=== PATIENT | male | born 1960 | race African-American/Black ===

== ENCOUNTER 2018-09-25 10:37 | Emergency (ER) | payer OTHER ==
[~2018-09-25] VITALS: Ht 175.3 cm; Wt 65.0 kg
[2018-09-25 11:52] LABS: BASOPHILS % 0.9 % (0.0-2.0); EOSINOPHILS % 4.5 % (0.0-5.0); HEMOGLOBIN. 14.8 g/dL (14.0-18.0); LYMPHOCYTES % 25.3 % (20.0-50.0); MEAN CORPUSCULAR HEMOGLOBIN 29.8 pg (28.0-32.0); MEAN CORPUSCULAR VOLUME 90.9 fL (80.0-94.0); MEAN PLATELET VOLUME 9.3 fl (7.4-10.4); MONOCYTES % 7.5 % (2.0-8.0); NEUTROPHILS % 61.8 % (40.0-76.0); PLATELET 246 x1000/uL (130-400); RED BLOOD CELL COUNT 4.95 mill/uL (4.7-6.1); RED CELL DISTRIBUTION WIDTH 15.1 % (11.6-14.6)
[2018-09-25 11:57] LABS: CHLORIDE 106 mEq/L (98-107)
[2018-09-25] MEDS ORDERED: IBUPROFEN 600MG TABLET PO ONE (13:00)
[2018-09-25 14:00] VITALS: BP 118/78
== END 2018-09-25 14:03 | disposition home or self-care (01) ==
LOC: ER 10:37
DX: R07.89 Other chest pain (principal); F17.290 Nicotine dependence, other tobacco product, uncomplicated; J44.9 Chronic obstructive pulmonary disease, unspecified
CPT/HCPCS: 36415; 71045; 84484; 93005; 99284

== ENCOUNTER 2023-08-07 07:35 | Inpatient (IN) | payer OTHER ==
[~2023-08-07] VITALS: Ht 182.9 cm; Wt 62.1 kg
[2023-08-07] VITALS (11 sets, daily range): BP systolic 111–137; BP diastolic 76–97; PULSE 79–99; RESP 16–31; TEMP 96.9–97.9; O2SAT 96–98
[~2023-08-07 07:35] MED LIST: ALBU6.7H15 INH; ALBU6.7H3 INH; FLUT1BLS IH; FLUT1DIS3 INH; IPRA3AMP9 NEB; MED4 MT
[2023-08-07] MEDS: IPRATROPIUM BROMIDE (0.02%) 0.5MG/2.5ML NEB HHN STA (07:48)
[2023-08-07] MEDS: ALBUTEROL (0.083%) 2.5MG/3ML NEB HHN SCH (07:49)
[2023-08-07 07:59] LABS: BASOPHILS % 0.9 % (0.0-2.0); EOSINOPHILS % 6.2 % (0.0-5.0); HEMATOCRIT. 40.4 % (42.0-52.0); HEMOGLOBIN. 13.4 g/dL (14.0-18.0); LYMPHOCYTES % 31.7 % (20.0-50.0); MEAN CORPUSCULAR HEMOGLOBIN 29.8 pg (28.0-32.0); MEAN CORPUSCULAR HGB CONC 33.1 g/dL (31.0-37.0); MEAN CORPUSCULAR VOLUME 89.9 fL (80.0-94.0); MEAN PLATELET VOLUME 8.1 fl (7.4-10.4); MONOCYTES % 8.9 % (2.0-8.0); NEUTROPHILS % 52.3 % (40.0-76.0); PLATELET 348 x1000/uL (130-400); RED BLOOD CELL COUNT 4.49 mill/uL (4.7-6.1); RED CELL DISTRIBUTION WIDTH 15.4 % (11.6-14.6); WHITE BLOOD COUNT 5.9 x1000/uL (4.5-11.0)
[2023-08-07] MEDS: EPINEPHRINE 1:1000 1 MG/ML AMP IM ONE (08:00)
[2023-08-07] MEDS: METHYLPREDNISOLONE SOD SUCC 125MG/2ML (ACT-O-VIAL) IV STA (08:00)
[2023-08-07] MEDS: MAGNESIUM 2 G PREMIX 50 ML IV ONE (08:01)
[2023-08-07 08:05] LABS: CHLORIDE 104 mEq/L (98-107); POTASSIUM 4.3 mEq/L (3.5-5.1); SODIUM 139 mEq/L (136-145)
[2023-08-07 08:06] LABS: CALCIUM 9.5 mg/dL (8.7-10.4); CARBON DIOXIDE 33 mEq/L (21-32)
[2023-08-07 08:11] LABS: CREATININE 0.7 mg/dL (0.6-1.3); GLUCOSE 92 mg/dL (70-105); UREA NITROGEN BLOOD 9 mg/dL (9-23)
[2023-08-07 08:13] LABS: ALANINE AMINOTRANSFERASE 23 IU/L (10-49); ALBUMIN 4.1 g/dL (3.2-4.8); ASPARTATE AMINOTRANSFERASE 27 IU/L (<34)
[2023-08-07 08:14] LABS: BILIRUBIN TOTAL 0.7 mg/dL (0.1-1.0); PROTEIN TOTAL 6.3 g/dL (6.0-8.3)
[2023-08-07 08:20] LABS: TROPONIN I HIGH SENSITIVITY 7 ng/L (3.0-53)
[2023-08-07] MEDS: CALCIUM GLUCONATE 1GM PREMIX 50 ML IV ONE (09:30)
[2023-08-07] MEDS: AZITHROMYCIN 500MG/250ML 250 ML IV SCH (10:17)
[2023-08-07] MEDS ORDERED: ONDANSETRON HCL 4MG/2ML INJ IV PRN (14:45)
[2023-08-07] MEDS ORDERED: ACETAMINOPHEN 325MG TABLET PO PRN (14:45)
[2023-08-07] MEDS ORDERED: CLONIDINE 0.1MG TABLET PO PRN (14:45)
[2023-08-07] MEDS ORDERED: DIPHENHYDRAMINE 50MG/ML VIAL IV PRN (14:45)
[2023-08-07] MEDS: IPRATROPIUM/ALBUTEROL 0.5-3(2.5)MG/3ML NEB HHN PRN (17:28)
[2023-08-07] MEDS: METHYLPREDNISOLONE SOD SUCC 40MG/ML (ACT-O-VIAL) IV SCH (17:38)
[2023-08-07] MEDS ORDERED: AZITHROMYCIN 500 MG TABLET PO SCH (19:30)
[2023-08-07] MEDS: BUDESONIDE 0.5MG/2ML NEB HHN SCH (22:19)
[2023-08-08] VITALS (19 sets, daily range): BP systolic 91–122; BP diastolic 61–79; PULSE 72–102; RESP 15–23; TEMP 97.2–98.5; O2SAT 96–100
[2023-08-08] MEDS: IPRATROPIUM/ALBUTEROL 0.5-3(2.5)MG/3ML NEB HHN SCH (00:03)
[2023-08-08 05:47] LABS: HEMOGLOBIN. 12.4 g/dL (14.0-18.0); MEAN CORPUSCULAR HEMOGLOBIN 29.4 pg (28.0-32.0); MEAN CORPUSCULAR HGB CONC 32.8 g/dL (31.0-37.0); MEAN CORPUSCULAR VOLUME 89.6 fL (80.0-94.0); MEAN PLATELET VOLUME 9.1 fl (7.4-10.4); PLATELET 352 x1000/uL (130-400); RED BLOOD CELL COUNT 4.23 mill/uL (4.7-6.1); RED CELL DISTRIBUTION WIDTH 15.7 % (11.6-14.6); WHITE BLOOD COUNT 11.2 x1000/uL (4.5-11.0)
[2023-08-08 06:19] LABS: CARBON DIOXIDE 30 mEq/L (21-32); CHLORIDE 103 mEq/L (98-107); POTASSIUM 4.6 mEq/L (3.5-5.1); SODIUM 137 mEq/L (136-145)
[2023-08-08 06:20] LABS: CALCIUM 9.7 mg/dL (8.7-10.4)
[2023-08-08 06:25] LABS: CREATININE 0.7 mg/dL (0.6-1.3); GLUCOSE 125 mg/dL (70-105); UREA NITROGEN BLOOD 14 mg/dL (9-23)
[2023-08-08 06:38] LABS: DIFFERENTIAL COMMENT 1
[2023-08-08 08:39] LABS: BG BASE EXCESS 3.3 mmol/L (-2.0-2.0); BG CARBOXYHEMOGLOBIN 0.3 % (0.5-1.5); BG FRACTION INSPIRED OXYGEN 32; BG HCO3 ACT 29.6 mmol/L (22.0-26.0); BG METHEMOGLOBIN 0.6 % (0.0-1.5); BG OXYHEMOGLOBIN 94.1 % (94.0-97.0); BG PCO2 51.8 mmHg (35.0-45.0); BG PH 7.375 (7.350-7.450); BG PO2 81.4 mmHg (75.0-100.0); BG SAMPLE SITE RIGHT RADIAL; BG TOTAL HEMOGLOBIN 13.6 g/dL (12.0-18.0); BG VENT MODE NASAL CANNULA
[2023-08-08] MEDS: AZITHROMYCIN 500 MG TABLET PO SCH (08:54)
[2023-08-08] MEDS ORDERED: AZIT500T8 MT (12:29)
[2023-08-08] MEDS ORDERED: ALBU6.7H15 INH (12:29)
[2023-08-08] MEDS ORDERED: IPRA3AMP9 NEB (12:29)
[2023-08-08] MEDS ORDERED: FLUT1DIS3 INH (12:29)
[2023-08-08] MEDS ORDERED: MED4 MT (12:29)
[2023-08-08 18:49] LABS: PLATELET ESTIMATE NORMAL
[2023-08-09] VITALS (16 sets, daily range): BP systolic 95–116; BP diastolic 52–82; PULSE 61–88; RESP 13–29; TEMP 97.8–98.5
[2023-08-09] MEDS: GUAIFENESIN 600MG ER TABLET PO SCH (10:30)
[2023-08-09] MEDS: LORATADINE 10MG TABLET PO SCH (10:30)
[2023-08-09] MEDS: FAMOTIDINE 20MG/2ML VIAL IV SCH (11:17)
[2023-08-09 13:08] LABS: BG BASE EXCESS 5.1 mmol/L (-2.0-2.0); BG CARBOXYHEMOGLOBIN 0.3 % (0.5-1.5); BG DEOXYHEMOGLOBIN 1.8 % (0.0-5.0); BG FRACTION INSPIRED OXYGEN 30; BG HCO3 ACT 30.4 mmol/L (22.0-26.0); BG METHEMOGLOBIN 0.1 % (0.0-1.5); BG OXYGEN SATURATION 98.2 % (92.0-98.5); BG OXYHEMOGLOBIN 97.8 % (94.0-97.0); BG PCO2 47.8 mmHg (35.0-45.0); BG PH 7.422 (7.350-7.450); BG PO2 105.4 mmHg (75.0-100.0); BG SAMPLE SITE LEFT RADIAL; BG TOTAL HEMOGLOBIN 12.5 g/dL (12.0-18.0); BG TOTAL RESPIRATORY RATE 22 b/min; BG VENT MODE MASK - BIPAP
[2023-08-09] MEDS: METHYLPREDNISOLONE SOD SUCC 125MG/2ML (ACT-O-VIAL) IV SCH (14:00)
[2023-08-09] MEDS: THEOPHYLLINE ANHYDROUS 80 MG/15 ML 120ML PO SCH (14:00)
[2023-08-09] MEDS: IPRATROPIUM/ALBUTEROL 0.5-3(2.5)MG/3ML NEB HHN SCH (14:57)
[2023-08-09 16:34] LABS: *AMPHETAMINES SCREEN URINE NEGATIVE (NEGATIVE); *BARBITURATES SCREEN URINE NEGATIVE (NEGATIVE); *BENZODIAZEPINES SCREEN URINE NEGATIVE (NEGATIVE); *COCAINE SCREEN URINE NEGATIVE (NEGATIVE); METHADONE URINE SCREEN NEGATIVE (NEGATIVE); OPIATES URINE SCREEN NEGATIVE (NEGATIVE); PHENCYCLIDINE URINE SCREEN NEGATIVE (NEGATIVE)
[2023-08-09 16:35] LABS: CANNABINOID URINE SCREEN PRESUMPTIVE POSITIVE (NEGATIVE); ECSTASY MDMA SCREEN URINE NEGATIVE (NEGATIVE)
[2023-08-10] VITALS (17 sets, daily range): BP systolic 105–128; BP diastolic 61–93; PULSE 73–97; RESP 15–24; TEMP 97.7–98.1; O2SAT 94
[2023-08-10] MEDS: METHYLPREDNISOLONE SOD SUCC 40MG/ML (ACT-O-VIAL) IV SCH (17:13)
[2023-08-11] VITALS (13 sets, daily range): BP systolic 111–127; BP diastolic 71–91; PULSE 74–102; RESP 13–22; TEMP 97.4–98.6; O2SAT 96–97
[2023-08-11] MEDS: METHYLPREDNISOLONE SOD SUCC 40MG/ML (ACT-O-VIAL) IV SCH (17:40)
[2023-08-12] VITALS (14 sets, daily range): BP systolic 108–138; BP diastolic 69–92; PULSE 70–93; RESP 15–20; TEMP 97.4–98.4; O2SAT 95–98
[2023-08-13] VITALS (7 sets, daily range): BP systolic 125–139; BP diastolic 72–84; PULSE 67–98; RESP 17–20; TEMP 97.6–97.8; O2SAT 95–99
[2023-08-13 06:30] LABS: CALCIUM 9.2 mg/dL (8.7-10.4); CHLORIDE 102 mEq/L (98-107); POTASSIUM 4.4 mEq/L (3.5-5.1); SODIUM 136 mEq/L (136-145)
[2023-08-13 06:31] LABS: CARBON DIOXIDE 31 mEq/L (21-32)
[2023-08-13 06:36] LABS: CREATININE 0.8 mg/dL (0.6-1.3); GLUCOSE 108 mg/dL (70-105); UREA NITROGEN BLOOD 14 mg/dL (9-23)
[2023-08-13 06:42] LABS: HEMATOCRIT. 35.6 % (42.0-52.0); HEMOGLOBIN. 11.9 g/dL (14.0-18.0); MEAN CORPUSCULAR HEMOGLOBIN 29.8 pg (28.0-32.0); MEAN CORPUSCULAR HGB CONC 33.3 g/dL (31.0-37.0); MEAN CORPUSCULAR VOLUME 89.4 fL (80.0-94.0); MEAN PLATELET VOLUME 9.7 fl (7.4-10.4); PLATELET 239 x1000/uL (130-400); RED BLOOD CELL COUNT 3.98 mill/uL (4.7-6.1); RED CELL DISTRIBUTION WIDTH 15.6 % (11.6-14.6); WHITE BLOOD COUNT 14.1 x1000/uL (4.5-11.0)
[2023-08-13 07:04] LABS: DIFFERENTIAL COMMENT 1
[2023-08-13 22:22] LABS: ANISOCYTOSIS 1+; PLATELET ESTIMATE NORMAL
== END 2023-08-13 12:00 | disposition home or self-care (01) | DRG 140 ==
LOC: ER 07:57 → 5EST 11:43 → EDBEDREQ 11:46 → EDBEDREQTM 11:46
PROVIDERS: ADMIT Internal Medicine; ATTEND Internal Medicine
PROC: 5A09357 Assistance with Respiratory Ventilation, Less than 24 Consecutive Hours, Continuous Positive Airway Pressure (ICD-10-PCS; principal; 2023-08-07)
PROC: 5A1935Z Respiratory Ventilation, Less than 24 Consecutive Hours (ICD-10-PCS; 2023-08-07)
PROC: 0BH17EZ Insertion of Endotracheal Airway into Trachea, Via Natural or Artificial Opening (ICD-10-PCS; 2023-08-07)
PROC: 5A09357 Assistance with Respiratory Ventilation, Less than 24 Consecutive Hours, Continuous Positive Airway Pressure (ICD-10-PCS; 2023-08-08)
PROC: 5A09357 Assistance with Respiratory Ventilation, Less than 24 Consecutive Hours, Continuous Positive Airway Pressure (ICD-10-PCS; 2023-08-09)
PROC: 5A09357 Assistance with Respiratory Ventilation, Less than 24 Consecutive Hours, Continuous Positive Airway Pressure (ICD-10-PCS; 2023-08-10)
PROC: 5A09357 Assistance with Respiratory Ventilation, Less than 24 Consecutive Hours, Continuous Positive Airway Pressure (ICD-10-PCS; 2023-08-11)
PROC: 5A09357 Assistance with Respiratory Ventilation, Less than 24 Consecutive Hours, Continuous Positive Airway Pressure (ICD-10-PCS; 2023-08-12)
DX: J44.1 Chronic obstructive pulmonary disease with (acute) exacerbation (principal); J96.21 Acute and chronic respiratory failure with hypoxia; I50.22 Chronic systolic (congestive) heart failure; I11.0 Hypertensive heart disease with heart failure; F14.10 Cocaine abuse, uncomplicated; I25.10 Atherosclerotic heart disease of native coronary artery without angina pectoris; Z87.891 Personal history of nicotine dependence; Z79.51 Long term (current) use of inhaled steroids; Z79.899 Other long term (current) drug therapy; Z91.199 Patient's noncompliance with other medical treatment and regimen due to unspecified reason; Z99.81 Dependence on supplemental oxygen
CPT/HCPCS: 36415; 36600; 71045; 80048; 80053; 80305; 82375; 82805; 83880; 84484; 85025; 93005; 93970; 94640; 94660; 99291; J0456; J0610; J2920; J2930; J3475; J3490; J7626

== ENCOUNTER 2023-10-31 06:34 | Inpatient (IN) | payer MEDICAID, OTHER ==
[~2023-10-31] VITALS: Ht 172.7 cm; Wt 76.2 kg
[2023-10-31] VITALS (7 sets, daily range): BP systolic 121–130; BP diastolic 72–77; PULSE 78–114; RESP 19–22; TEMP 36.50292–37.00296; O2SAT 91–98
[~2023-10-31 06:34] MED LIST changes: -FLUT1BLS IH
[2023-10-31] MEDS: METHYLPREDNISOLONE SOD SUCC 125MG/2ML (ACT-O-VIAL) IV STA (06:48)
[2023-10-31] MEDS: ALBUTEROL (0.083%) 2.5MG/3ML NEB HHN STA (07:01)
[2023-10-31] MEDS: IPRATROPIUM BROMIDE (0.02%) 0.5MG/2.5ML NEB HHN STA (07:02)
[2023-10-31 07:22] LABS: CHLORIDE 105 mEq/L (98-107); POTASSIUM 4.1 mEq/L (3.5-5.1); SODIUM 140 mEq/L (136-145)
[2023-10-31 07:23] LABS: CARBON DIOXIDE 34 mEq/L (21-32)
[2023-10-31 07:24] LABS: BASOPHILS % 1.3 % (0.0-2.0); CALCIUM 9.6 mg/dL (8.7-10.4); DIFFERENTIAL COMMENT 0; EOSINOPHILS % 11.5 % (0.0-5.0); HEMATOCRIT. 43.5 % (42.0-52.0); HEMOGLOBIN. 13.8 g/dL (14.0-18.0); LYMPHOCYTES % 32.7 % (20.0-50.0); MEAN CORPUSCULAR HEMOGLOBIN 29.1 pg (28.0-32.0); MEAN CORPUSCULAR HGB CONC 31.8 g/dL (31.0-37.0); MEAN CORPUSCULAR VOLUME 91.2 fL (80.0-94.0); MEAN PLATELET VOLUME 9.5 fl (7.4-10.4); NEUTROPHILS % 46.5 % (40.0-76.0); PLATELET 244 x1000/uL (130-400); RED BLOOD CELL COUNT 4.76 mill/uL (4.7-6.1); RED CELL DISTRIBUTION WIDTH 15.2 % (11.6-14.6); WHITE BLOOD COUNT 4.3 x1000/uL (4.5-11.0)
[2023-10-31 07:28] LABS: CREATININE 0.9 mg/dL (0.6-1.3); GLUCOSE 112 mg/dL (70-105); PROTHROMBIN TIME 10.8 sec (9.6-11.0); UREA NITROGEN BLOOD 8 mg/dL (9-23)
[2023-10-31 07:29] LABS: TROPONIN I HIGH SENSITIVITY 6 ng/L (3.0-53)
[2023-10-31 09:53] LABS: CLARITY URINE CLEAR (CLEAR); COLOR URINE YELLOW (YELLOW); GLUCOSE URINE NEGATIVE (NEGATIVE); KETONES URINE TRACE (NEGATIVE); LEUKOCYTE ESTERASE URINE NEGATIVE (NEGATIVE); NITRITE URINE NEGATIVE (NEGATIVE); OCCULT BLOOD URINE NEGATIVE (NEGATIVE); PH URINE 6.5 (4.5-8.0); PROTEIN URINE NEGATIVE (NEGATIVE); SPECIFIC GRAVITY URINE 1.026 (1.005-1.030)
[2023-10-31] MEDS ORDERED: IPRATROPIUM/ALBUTEROL 0.5-3(2.5)MG/3ML NEB HHN PRN (10:00)
[2023-10-31 10:18] LABS: *AMPHETAMINES SCREEN URINE NEGATIVE (NEGATIVE); *BARBITURATES SCREEN URINE NEGATIVE (NEGATIVE); *BENZODIAZEPINES SCREEN URINE NEGATIVE (NEGATIVE); *COCAINE SCREEN URINE NEGATIVE (NEGATIVE)
[2023-10-31 10:19] LABS: CANNABINOID URINE SCREEN PRESUMPTIVE POSITIVE (NEGATIVE); ECSTASY MDMA SCREEN URINE NEGATIVE (NEGATIVE); METHADONE URINE SCREEN NEGATIVE (NEGATIVE); OPIATES URINE SCREEN NEGATIVE (NEGATIVE); PHENCYCLIDINE URINE SCREEN NEGATIVE (NEGATIVE)
[2023-10-31] MEDS: AZITHROMYCIN 500MG/250ML 250 ML IV SCH (10:31)
[2023-10-31] MEDS ORDERED: ONDANSETRON HCL 4MG/2ML INJ IV PRN (11:15)
[2023-10-31] MEDS ORDERED: MAGNESIUM/ALUMINUM HYDROXIDE/SIMETHICONE 30ML UDC PO PRN (11:15)
[2023-10-31] MEDS ORDERED: ACETAMINOPHEN 325MG TABLET PO PRN ×2 (11:15)
[2023-10-31] MEDS ORDERED: DOCUSATE SODIUM 100MG CAPSULE PO PRN (11:15)
[2023-10-31] MEDS: BUDESONIDE 0.5MG/2ML NEB HHN SCH (13:33)
[2023-10-31] MEDS: METHYLPREDNISOLONE SOD SUCC 125MG/2ML (ACT-O-VIAL) IV SCH (13:58)
[2023-10-31] MEDS: IPRATROPIUM/ALBUTEROL 0.5-3(2.5)MG/3ML NEB HHN SCH (17:32)
[2023-10-31] MEDS: MONTELUKAST SODIUM 10MG TABLET PO SCH (17:58)
[2023-10-31] MEDS: ENOXAPARIN 40MG/0.4ML SYR SUBCUT SCH (17:58)
[2023-10-31] MEDS: GUAIFENESIN 600MG ER TABLET PO SCH (21:40)
[2023-11-01] VITALS (10 sets, daily range): BP systolic 115–133; BP diastolic 68–76; PULSE 82–107; RESP 18–22; TEMP 36.22512–36.78072; O2SAT 94–99
[2023-11-01] MEDS: GUAIFENESIN-DM 200MG-20MG/10ML UDC PO PRN (05:42)
[2023-11-01 07:10] LABS: BASOPHILS % 0.1 % (0.0-2.0); DIFFERENTIAL COMMENT 0; HEMATOCRIT. 42.1 % (42.0-52.0); HEMOGLOBIN. 13.4 g/dL (14.0-18.0); LYMPHOCYTES % 9.4 % (20.0-50.0); MEAN CORPUSCULAR HEMOGLOBIN 28.8 pg (28.0-32.0); MEAN CORPUSCULAR HGB CONC 31.9 g/dL (31.0-37.0); MEAN CORPUSCULAR VOLUME 90.3 fL (80.0-94.0); MEAN PLATELET VOLUME 9.9 fl (7.4-10.4); MONOCYTES % 2.3 % (2.0-8.0); NEUTROPHILS % 88.2 % (40.0-76.0); PLATELET 234 x1000/uL (130-400); RED BLOOD CELL COUNT 4.66 mill/uL (4.7-6.1); RED CELL DISTRIBUTION WIDTH 15.1 % (11.6-14.6); WHITE BLOOD COUNT 7.7 x1000/uL (4.5-11.0)
[2023-11-01 07:20] LABS: T4 FREE 0.95 ng/dL (0.89-1.76)
[2023-11-01 07:21] LABS: THYROID STIMULATING HORMONE 0.31 uIU/mL (0.55-4.78)
[2023-11-01] MEDS: PANTOPRAZOLE 40MG DR TABLET PO SCH (08:43)
[2023-11-01] MEDS: AZITHROMYCIN 500MG/250ML 250 ML IV SCH (11:45)
[2023-11-01] MEDS: LORATADINE 10MG TABLET PO SCH (13:49)
[2023-11-01] MEDS: TERBUTALINE SULFATE 1MG/ML VIAL SUBCUT NR (13:52)
[2023-11-01 16:21] LABS: CHLORIDE 103 mEq/L (98-107); POTASSIUM 4.4 mEq/L (3.5-5.1); SODIUM 135 mEq/L (136-145)
[2023-11-01 16:22] LABS: CALCIUM 9.1 mg/dL (8.7-10.4); CARBON DIOXIDE 27 mEq/L (21-32)
[2023-11-01 16:27] LABS: GLUCOSE 143 mg/dL (70-105); UREA NITROGEN BLOOD 18 mg/dL (9-23)
[2023-11-01] MEDS: FLUTICASONE PROPIONATE 50MCG/SPRAY BOTTLE BOTHNSTRLS SCH (20:36)
[2023-11-02] VITALS (12 sets, daily range): BP systolic 102–138; BP diastolic 67–84; PULSE 73–98; RESP 16–20; TEMP 36.33624–36.78072; O2SAT 93–100
[2023-11-02 06:29] LABS: HEMATOCRIT. 39.6 % (42.0-52.0); HEMOGLOBIN. 12.9 g/dL (14.0-18.0); MEAN CORPUSCULAR HEMOGLOBIN 29.4 pg (28.0-32.0); MEAN CORPUSCULAR HGB CONC 32.5 g/dL (31.0-37.0); MEAN CORPUSCULAR VOLUME 90.6 fL (80.0-94.0); MEAN PLATELET VOLUME 9.8 fl (7.4-10.4); PLATELET 239 x1000/uL (130-400); RED BLOOD CELL COUNT 4.37 mill/uL (4.7-6.1); RED CELL DISTRIBUTION WIDTH 15.2 % (11.6-14.6); WHITE BLOOD COUNT 17.3 x1000/uL (4.5-11.0)
[2023-11-02 06:40] LABS: CARBON DIOXIDE 28 mEq/L (21-32); CHLORIDE 102 mEq/L (98-107); POTASSIUM 4.6 mEq/L (3.5-5.1); SODIUM 136 mEq/L (136-145)
[2023-11-02 06:41] LABS: CALCIUM 9.6 mg/dL (8.7-10.4)
[2023-11-02 06:46] LABS: CREATININE 0.9 mg/dL (0.6-1.3); GLUCOSE 148 mg/dL (70-105); UREA NITROGEN BLOOD 17 mg/dL (9-23)
[2023-11-02 06:48] LABS: DIFFERENTIAL COMMENT 1
[2023-11-02 09:23] LABS: PLATELET ESTIMATE NORMAL
[2023-11-02] MEDS: METHYLPREDNISOLONE SOD SUCC 125MG/2ML (ACT-O-VIAL) IV SCH (21:48)
[2023-11-02] MEDS: THEOPHYLLINE ANHYDROUS 80 MG/15 ML 120ML PO SCH (21:50)
[2023-11-03] VITALS (12 sets, daily range): BP systolic 125–134; BP diastolic 79–86; PULSE 70–98; RESP 18–24; TEMP 36.114–37.16964; O2SAT 95–98
[2023-11-03] MEDS: FAMOTIDINE 20MG TABLET PO SCH (08:45)
[2023-11-03 16:57] LABS: HEMATOCRIT. 38.1 % (42.0-52.0); HEMOGLOBIN. 12.1 g/dL (14.0-18.0); MEAN CORPUSCULAR HGB CONC 31.7 g/dL (31.0-37.0); MEAN CORPUSCULAR VOLUME 91.6 fL (80.0-94.0); MEAN PLATELET VOLUME 9.9 fl (7.4-10.4); PLATELET 225 x1000/uL (130-400); RED BLOOD CELL COUNT 4.16 mill/uL (4.7-6.1); RED CELL DISTRIBUTION WIDTH 15.2 % (11.6-14.6); WHITE BLOOD COUNT 16.9 x1000/uL (4.5-11.0)
[2023-11-03 16:59] LABS: DIFFERENTIAL COMMENT 1
[2023-11-03 17:04] LABS: CHLORIDE 104 mEq/L (98-107); POTASSIUM 4.2 mEq/L (3.5-5.1); SODIUM 138 mEq/L (136-145)
[2023-11-03 17:05] LABS: CARBON DIOXIDE 28 mEq/L (21-32)
[2023-11-03 17:06] LABS: CALCIUM 9.1 mg/dL (8.7-10.4)
[2023-11-03 17:10] LABS: CREATININE 0.9 mg/dL (0.6-1.3); GLUCOSE 106 mg/dL (70-105)
[2023-11-03 17:11] LABS: UREA NITROGEN BLOOD 12 mg/dL (9-23)
[2023-11-03 18:12] LABS: ANISOCYTOSIS 1+; PLATELET ESTIMATE NORMAL
[2023-11-03] MEDS: GUAIFENESIN 600MG ER TABLET PO SCH (21:03)
[2023-11-04] VITALS (11 sets, daily range): BP systolic 115–130; BP diastolic 64–82; PULSE 85–102; RESP 16–20; TEMP 36.05844–36.9474; O2SAT 94–98
[2023-11-04 06:45] LABS: CALCIUM 9.3 mg/dL (8.7-10.4); CARBON DIOXIDE 27 mEq/L (21-32); CHLORIDE 102 mEq/L (98-107); POTASSIUM 4.2 mEq/L (3.5-5.1); SODIUM 137 mEq/L (136-145)
[2023-11-04 06:50] LABS: CREATININE 0.9 mg/dL (0.6-1.3)
[2023-11-04 06:51] LABS: GLUCOSE 192 mg/dL (70-105); UREA NITROGEN BLOOD 14 mg/dL (9-23)
[2023-11-04 07:04] LABS: HEMOGLOBIN. 12.3 g/dL (14.0-18.0); MEAN CORPUSCULAR HEMOGLOBIN 29.1 pg (28.0-32.0); MEAN CORPUSCULAR HGB CONC 32.3 g/dL (31.0-37.0); MEAN CORPUSCULAR VOLUME 90.3 fL (80.0-94.0); MEAN PLATELET VOLUME 10.2 fl (7.4-10.4); PLATELET 218 x1000/uL (130-400); RED CELL DISTRIBUTION WIDTH 15.3 % (11.6-14.6); WHITE BLOOD COUNT 13.9 x1000/uL (4.5-11.0)
[2023-11-04 07:09] LABS: DIFFERENTIAL COMMENT 1
[2023-11-04 11:26] LABS: BG BASE EXCESS 0.2 mmol/L (-2.0-2.0); BG CARBOXYHEMOGLOBIN 0.6 % (0.5-1.5); BG DEOXYHEMOGLOBIN 4.2 % (0.0-5.0); BG FRACTION INSPIRED OXYGEN 28; BG HCO3 ACT 25.1 mmol/L (22.0-26.0); BG METHEMOGLOBIN 0.3 % (0.0-1.5); BG OXYGEN SATURATION 95.8 % (92.0-98.5); BG OXYHEMOGLOBIN 94.9 % (94.0-97.0); BG PCO2 41.7 mmHg (35.0-45.0); BG PH 7.397 (7.350-7.450); BG PO2 84.5 mmHg (75.0-100.0); BG SAMPLE SITE RIGHT RADIAL; BG TOTAL HEMOGLOBIN 13.8 g/dL (12.0-18.0); BG VENT MODE NASAL CANNULA
[2023-11-04 16:58] LABS: PLATELET ESTIMATE NORMAL
[2023-11-05] VITALS (8 sets, daily range): BP systolic 113–123; BP diastolic 68–87; PULSE 81–106; RESP 16–22; TEMP 36.00288–36.50292; O2SAT 95–99
[2023-11-05 06:44] LABS: CALCIUM 9.1 mg/dL (8.7-10.4); CHLORIDE 100 mEq/L (98-107); POTASSIUM 4.4 mEq/L (3.5-5.1); SODIUM 135 mEq/L (136-145)
[2023-11-05 06:45] LABS: CARBON DIOXIDE 31 mEq/L (21-32)
[2023-11-05 06:50] LABS: CREATININE 0.9 mg/dL (0.6-1.3); GLUCOSE 119 mg/dL (70-105); UREA NITROGEN BLOOD 14 mg/dL (9-23)
[2023-11-05 06:56] LABS: HEMATOCRIT. 38.8 % (42.0-52.0); HEMOGLOBIN. 12.7 g/dL (14.0-18.0); MEAN CORPUSCULAR HEMOGLOBIN 29.5 pg (28.0-32.0); MEAN CORPUSCULAR HGB CONC 32.8 g/dL (31.0-37.0); PLATELET 217 x1000/uL (130-400); RED BLOOD CELL COUNT 4.31 mill/uL (4.7-6.1); RED CELL DISTRIBUTION WIDTH 15.2 % (11.6-14.6); WHITE BLOOD COUNT 14.8 x1000/uL (4.5-11.0)
[2023-11-05 07:31] LABS: DIFFERENTIAL COMMENT 1
[2023-11-05] MEDS ORDERED: ALBU6.7H15 INH (14:21)
[2023-11-05] MEDS ORDERED: MED4 MT (14:21)
[2023-11-05] MEDS ORDERED: GUAI600T44 PO (14:21)
[2023-11-05] MEDS ORDERED: FLUT1DIS3 INH (14:21)
[2023-11-05] MEDS ORDERED: IPRA3AMP9 NEB (14:21)
[2023-11-05] MEDS ORDERED: FAMO20TA8 PO (14:21)
[2023-11-05] MEDS ORDERED: CLAR10 PO (14:21)
[2023-11-05] MEDS ORDERED: P50 PO (14:25)
[2023-11-05] MEDS ORDERED: ATOR20TA65 PO (14:32)
[2023-11-05 16:35] LABS: PLATELET ESTIMATE NORMAL
== END 2023-11-05 16:30 | disposition home or self-care (01) | DRG 140 ==
LOC: ER 06:34 → 5WST 09:18 → EDBEDREQ 09:25 → 8WST 15:20
PROVIDERS: ADMIT Hospitalist; ATTEND Hospitalist
DX: J44.1 Chronic obstructive pulmonary disease with (acute) exacerbation (principal); J96.01 Acute respiratory failure with hypoxia; D72.19 Other eosinophilia; E87.3 Alkalosis; I50.22 Chronic systolic (congestive) heart failure; R73.03 Prediabetes; J00 Acute nasopharyngitis [common cold]; F12.90 Cannabis use, unspecified, uncomplicated
CPT/HCPCS: 36415; 36600; 71045; 80048; 80061; 80305; 81003; 82375; 82805; 83036; 83880; 84439; 84443; 84481; 84484; 85025; 85379; 87070; 93005; 93970; 94640; 99291; J0456; J1650; J2919; J3105; J7626

== ENCOUNTER 2023-11-18 17:41 | Inpatient (IN) | payer MEDICAID ==
[~2023-11-18] VITALS: Ht 170.2 cm; Wt 63.5 kg
[~2023-11-18 17:41] MED LIST changes: -ALBU6.7H3 INH; +ATOR20TA65 PO; +CLAR10 PO; +FAMO20TA8 PO; +GUAI600T44 PO; -MED4 MT; +P50 PO
[2023-11-18] MEDS: ALBUTEROL (0.083%) 2.5MG/3ML NEB HHN STA (18:40)
[2023-11-18] MEDS: IPRATROPIUM BROMIDE (0.02%) 0.5MG/2.5ML NEB HHN STA (18:40)
[2023-11-18 18:44] VITALS: PULSE 100; RESP 20; O2SAT 96
[2023-11-18] MEDS: METHYLPREDNISOLONE SOD SUCC 125MG/2ML (ACT-O-VIAL) IV STA (19:04)
[2023-11-18 19:32] LABS: BASOPHILS % 0.9 % (0.0-2.0); EOSINOPHILS % 3.5 % (0.0-5.0); HEMATOCRIT. 39.1 % (42.0-52.0); HEMOGLOBIN. 12.6 g/dL (14.0-18.0); LYMPHOCYTES % 29.6 % (20.0-50.0); MEAN CORPUSCULAR HEMOGLOBIN 29.3 pg (28.0-32.0); MEAN CORPUSCULAR HGB CONC 32.2 g/dL (31.0-37.0); MEAN CORPUSCULAR VOLUME 91.2 fL (80.0-94.0); MEAN PLATELET VOLUME 8.2 fl (7.4-10.4); MONOCYTES % 8.2 % (2.0-8.0); NEUTROPHILS % 57.8 % (40.0-76.0); PLATELET 171 x1000/uL (130-400); RED BLOOD CELL COUNT 4.29 mill/uL (4.7-6.1); RED CELL DISTRIBUTION WIDTH 15.9 % (11.6-14.6); WHITE BLOOD COUNT 6.5 x1000/uL (4.5-11.0)
[2023-11-18 19:39] LABS: CHLORIDE 105 mEq/L (98-107); POTASSIUM 4.1 mEq/L (3.5-5.1); SODIUM 139 mEq/L (136-145)
[2023-11-18 19:40] LABS: CARBON DIOXIDE 31 mEq/L (21-32)
[2023-11-18 19:45] LABS: CREATININE 0.9 mg/dL (0.6-1.3); GLUCOSE 81 mg/dL (70-105); INR 0.9; PARTIAL THROMBOPLASTIN TIME 24.5 sec (23.4-31.0); PROTHROMBIN TIME 9.8 sec (9.6-11.0); UREA NITROGEN BLOOD 9 mg/dL (9-23)
[2023-11-18 19:46] LABS: TROPONIN I HIGH SENSITIVITY 7 ng/L (3.0-53)
[2023-11-18 22:09] LABS: TROPONIN I HIGH SENSITIVITY 5 ng/L (3.0-53)
[2023-11-18] MEDS ORDERED: LORAZEPAM 0.5MG TABLET PO PRN (22:45)
[2023-11-18] MEDS ORDERED: GUAIFENESIN 200MG/10ML SUGAR FREE UDC PO PRN (22:45)
[2023-11-18] MEDS ORDERED: CLONIDINE 0.1MG TABLET PO PRN (22:45)
[2023-11-18] MEDS ORDERED: IPRATROPIUM/ALBUTEROL 0.5-3(2.5)MG/3ML NEB HHN PRN (22:45)
[2023-11-18] MEDS ORDERED: ONDANSETRON HCL 4MG/2ML INJ IV PRN (22:45)
[2023-11-18] MEDS ORDERED: DOCUSATE SODIUM 100MG CAPSULE PO PRN (22:45)
[2023-11-18] MEDS ORDERED: ACETAMINOPHEN 325MG TABLET PO PRN ×2 (22:45)
[2023-11-18] MEDS: METHYLPREDNISOLONE SOD SUCC 125MG/2ML (ACT-O-VIAL) IV SCH (23:43)
[2023-11-18] MEDS: BUDESONIDE 0.5MG/2ML NEB HHN SCH (23:51)
[2023-11-18] MEDS: IPRATROPIUM/ALBUTEROL 0.5-3(2.5)MG/3ML NEB HHN SCH (23:53)
[2023-11-18 23:54] VITALS: PULSE 99; RESP 20; O2SAT 98
[2023-11-19] VITALS (9 sets, daily range): BP systolic 124–133; BP diastolic 58–86; PULSE 85–109; RESP 18–20; TEMP 36.3918–36.8072; O2SAT 97–99
[2023-11-19 06:40] LABS: CHLORIDE 105 mEq/L (98-107); POTASSIUM 5.2 mEq/L (3.5-5.1); SODIUM 139 mEq/L (136-145)
[2023-11-19 06:42] LABS: CARBON DIOXIDE 30 mEq/L (21-32)
[2023-11-19 06:43] LABS: CALCIUM 10.1 mg/dL (8.7-10.4)
[2023-11-19 06:45] LABS: CREATINE KINASE MB FRACTION 4.3 ng/mL (0.5-3.6)
[2023-11-19 06:48] LABS: CREATININE 0.9 mg/dL (0.6-1.3); GLUCOSE 139 mg/dL (70-105); PROTEIN TOTAL 6.7 g/dL (6.0-8.3); TRIGLYCERIDE 39 mg/dL (0-150); UREA NITROGEN BLOOD 15 mg/dL (9-23)
[2023-11-19 06:49] LABS: ALANINE AMINOTRANSFERASE 51 IU/L (10-49); ALBUMIN 4.7 g/dL (3.2-4.8); LDL CHOLESTEROL 119 mg/dL (5-100)
[2023-11-19 06:50] LABS: ASPARTATE AMINOTRANSFERASE 25 IU/L (<34); BILIRUBIN TOTAL 0.5 mg/dL (0.1-1.0); CHOLESTEROL 250 mg/dL (<200); HDL CHOLESTEROL 116 mg/dL (>55); PHOSPHORUS 3.5 mg/dL (2.5-4.9)
[2023-11-19] MEDS: PANTOPRAZOLE 40MG DR TABLET PO SCH (06:51)
[2023-11-19 06:56] LABS: HEMATOCRIT 40.3 % (42.0-52.0); MEAN CORPUSCULAR HEMOGLOBIN 29.6 pg (28.0-32.0); MEAN CORPUSCULAR HGB CONC 32.2 g/dL (31.0-37.0); MEAN CORPUSCULAR VOLUME 92.1 fL (80.0-94.0); PLATELET 178 x1000/uL (130-400); RED BLOOD CELL COUNT 4.37 mill/uL (4.7-6.1); RED CELL DISTRIBUTION WIDTH 16.1 % (11.6-14.6); WHITE BLOOD COUNT 8.2 x1000/uL (4.5-11.0)
[2023-11-19] MEDS: SODIUM POLYSTYRENE SULFONATE 15 G/60 ML BOT PO NR (08:01)
[2023-11-19] MEDS ORDERED: AZITHROMYCIN 500 MG TABLET PO SCH (09:00)
[2023-11-19] MEDS: ENOXAPARIN 40MG/0.4ML SYR SUBCUT SCH (09:17)
[2023-11-19] MEDS: LORATADINE 10MG TABLET PO SCH (09:18)
[2023-11-19] MEDS: DOXYCYCLINE 100MG/100ML 100 ML IV SCH (10:08)
[2023-11-19 16:39] LABS: CREATINE KINASE MB FRACTION 5.2 ng/mL (0.5-3.6); TROPONIN I HIGH SENSITIVITY < 4 ng/L (3.0-53)
[2023-11-19 16:40] LABS: CREATINE KINASE 169 IU/L (46-171)
[2023-11-19] MEDS: GUAIFENESIN/DM 600MG/30MG ER TAB 12HR PO SCH (22:12)
[2023-11-20] VITALS (10 sets, daily range): BP systolic 110–132; BP diastolic 60–84; PULSE 77–100; RESP 18; TEMP 35.66952–36.72516; O2SAT 94–100
[2023-11-20 11:36] LABS: CHLORIDE 105 mEq/L (98-107); POTASSIUM 4.7 mEq/L (3.5-5.1); SODIUM 139 mEq/L (136-145)
[2023-11-20 11:37] LABS: CALCIUM 9.2 mg/dL (8.7-10.4); CARBON DIOXIDE 29 mEq/L (21-32)
[2023-11-20 11:42] LABS: CREATININE 0.8 mg/dL (0.6-1.3); GLUCOSE 124 mg/dL (70-105); UREA NITROGEN BLOOD 19 mg/dL (9-23)
[2023-11-20] MEDS ORDERED: DEXTL PO (12:29)
[2023-11-20] MEDS ORDERED: P20 MT (12:29)
[2023-11-20] MEDS ORDERED: DOXY100C74 MT (12:29)
[2023-11-20] MEDS: DOXYCYCLINE HYCLATE 100MG CAPSULE PO SCH (20:51)
[2023-11-21] MEDS ORDERED: FAMOTIDINE 20MG TABLET PO SCH (09:00)
== END 2023-11-20 21:00 | disposition home or self-care (01) | DRG 140 ==
LOC: ER 17:41 → EDBEDREQTM 20:22 → EDBEDREQ 20:22 → 5WST 22:32 → 8WST 11-19 17:40
PROVIDERS: ADMIT Hospitalist; ATTEND Hospitalist
PROC: 5A0935A Assistance with Respiratory Ventilation, Less than 24 Consecutive Hours, High Flow/Velocity Cannula (ICD-10-PCS; principal; 2023-11-18)
DX: J44.1 Chronic obstructive pulmonary disease with (acute) exacerbation (principal); J96.21 Acute and chronic respiratory failure with hypoxia; I50.9 Heart failure, unspecified; R07.89 Other chest pain; D64.9 Anemia, unspecified; E78.5 Hyperlipidemia, unspecified; E87.5 Hyperkalemia; Z79.51 Long term (current) use of inhaled steroids; Z79.899 Other long term (current) drug therapy; Z87.891 Personal history of nicotine dependence; Z99.81 Dependence on supplemental oxygen
CPT/HCPCS: 36415; 71045; 80048; 80053; 80061; 82550; 82553; 83036; 83735; 83880; 84100; 84132; 84484; 85025; 85027; 85379; 92610; 93005; 93306; 93970; 94640; 97161; 97165; 99285; J1650; J2919; J3490; J7626

== ENCOUNTER 2024-06-07 09:02 | Inpatient (IN) | payer BC, OTHER ==
[2024-06-07] VITALS (8 sets, daily range): BP systolic 105–141; BP diastolic 78–123; PULSE 69–110; RESP 15–24; TEMP 36.3–37.3; O2SAT 99–100
[~2024-06-07] VITALS: Ht 175.3 cm; Wt 68.3 kg
[~2024-06-07 09:02] MED LIST changes: +ALBU18HF2 IH; -ALBU6.7H15 INH; +GUAI-741 PO; -GUAI600T44 PO; +MONT-46 PO; +P20 MT; -P50 PO
[2024-06-07] MEDS: SODIUM CHLORIDE 0.9% (SEPSIS BOLUS) IV ONE (09:15)
[2024-06-07] MEDS: PIPERACILLIN/TAZO 3.375G/50ML 50 ML IV ONE (09:15)
[2024-06-07 09:22] LABS: BASOPHILS % 0.6 % (0.0-2.0); EOSINOPHILS % 3.1 % (0.0-5.0); HEMATOCRIT. 43.9 % (42.0-52.0); LYMPHOCYTES % 34.1 % (20.0-50.0); MEAN CORPUSCULAR HEMOGLOBIN 29.5 pg (28.0-32.0); MEAN CORPUSCULAR HGB CONC 31.9 g/dL (31.0-37.0); MEAN CORPUSCULAR VOLUME 92.5 fL (80.0-94.0); MONOCYTES % 10.4 % (2.0-8.0); NEUTROPHILS % 51.8 % (40.0-76.0); PLATELET 206 x1000/uL (130-400); RED BLOOD CELL COUNT 4.75 mill/uL (4.7-6.1); RED CELL DISTRIBUTION WIDTH 15.5 % (11.6-14.6); WHITE BLOOD COUNT 5.1 x1000/uL (4.5-11.0)
[2024-06-07 09:39] LABS: CHLORIDE 105 mEq/L (98-107); POTASSIUM 4.7 mEq/L (3.5-5.1); SODIUM 142 mEq/L (136-145)
[2024-06-07 09:40] LABS: CALCIUM 9.3 mg/dL (8.7-10.4); CARBON DIOXIDE 26 mEq/L (21-32)
[2024-06-07] MEDS: VANCOMYCIN 1G PREMIX 200 ML IV ONE (09:44)
[2024-06-07 09:45] LABS: CREATININE 0.8 mg/dL (0.6-1.3); GLUCOSE 84 mg/dL (70-105); UREA NITROGEN BLOOD 12 mg/dL (9-23)
[2024-06-07 09:47] LABS: ALANINE AMINOTRANSFERASE 36 IU/L (10-49); ALBUMIN 4.2 g/dL (3.2-4.8); ASPARTATE AMINOTRANSFERASE 35 IU/L (<34); BILIRUBIN DIRECT 0.2 mg/dL (<=3.0); BILIRUBIN TOTAL 1.2 mg/dL (0.1-1.0); PROTEIN TOTAL 6.7 g/dL (6.0-8.3)
[2024-06-07 10:02] LABS: TROPONIN I HIGH SENSITIVITY < 4 ng/L (3.0-53)
[2024-06-07 10:23] LABS: PROTHROMBIN TIME 11.1 sec (9.6-11.0)
[2024-06-07] MEDS ORDERED: ONDANSETRON HCL 4MG/2ML INJ IV PRN (16:45)
[2024-06-07] MEDS ORDERED: LORAZEPAM 0.5MG TABLET PO PRN (16:45)
[2024-06-07] MEDS ORDERED: IPRATROPIUM/ALBUTEROL 0.5-3(2.5)MG/3ML NEB HHN PRN (16:45)
[2024-06-07] MEDS ORDERED: HYDROCODONE/ACETAMINOPHEN 5/325MG TABLET PO PRN (16:45)
[2024-06-07] MEDS: ENOXAPARIN 40MG/0.4ML SYR SUBCUT SCH (16:45)
[2024-06-07 23:45] LABS: CLARITY URINE CLOUDY (CLEAR); COLOR URINE YELLOW (YELLOW); GLUCOSE URINE NEGATIVE (NEGATIVE); KETONES URINE 1+ (NEGATIVE); LEUKOCYTE ESTERASE URINE NEGATIVE (NEGATIVE); NITRITE URINE NEGATIVE (NEGATIVE); OCCULT BLOOD URINE NEGATIVE (NEGATIVE); PH URINE 5.5 (4.5-8.0); PROTEIN URINE NEGATIVE (NEGATIVE); SPECIFIC GRAVITY URINE 1.026 (1.005-1.030); UROBILINOGEN URINE 0.2 E.U./dL (0.2-1.0)
[2024-06-08] VITALS (18 sets, daily range): BP systolic 104–126; BP diastolic 58–97; PULSE 63–120; RESP 14–24; TEMP 36.2–37.1; O2SAT 92–100
[2024-06-08] MEDS ORDERED: CEFEPIME 1GM IN DEXT 5% 50ML IV SCH (00:45)
[2024-06-08] MEDS ORDERED: METHYLPREDNISOLONE SOD SUCC 40MG/ML (ACT-O-VIAL) IV SCH (00:45)
[2024-06-08 01:12] LABS: BG BASE EXCESS 0.5 mmol/L (-2.0-3.0); BG CARBOXYHEMOGLOBIN 0.3 % (0.5-1.5); BG DEOXYHEMOGLOBIN 1.3 % (0.0-5.0); BG FRACTION INSPIRED OXYGEN 35; BG HCO3 ACT 26.5 mmol/L (21.0-28.0); BG METHEMOGLOBIN 0.2 % (0.5-1.5); BG OXYGEN SATURATION 98.7 % (94.0-98.0); BG OXYHEMOGLOBIN 98.2 % (94.0-98.0); BG PCO2 48.2 mmHg (35.0-48.0); BG PH 7.358 (7.350-7.450); BG PO2 133.6 mmHg (83.0-108.0); BG SAMPLE SITE RIGHT RADIAL; BG TOTAL HEMOGLOBIN 12.9 g/dL (13.5-17.5); BG VENT MODE MASK - BIPAP
[2024-06-08] MEDS: IPRATROPIUM/ALBUTEROL 0.5-3(2.5)MG/3ML NEB HHN SCH (02:08)
[2024-06-08] MEDS: BUDESONIDE 0.5MG/2ML NEB HHN SCH (02:08)
[2024-06-08 02:44] LABS: BACTERIA URINE NONE SEEN; RBC URINE 0-2 /hpf (0-2); SQUAMOUS EPITHELIAL CELL URINE NONE SEEN /lpf (RARE/1+); WBC URINE 0-2 /hpf (0-2)
[2024-06-08] MEDS: CEFEPIME 2GM/50ML DUPLEX 50 ML IV SCH (03:03)
[2024-06-08] MEDS: METHYLPREDNISOLONE SOD SUCC 125MG/2ML (ACT-O-VIAL) IV SCH (05:22)
[2024-06-08 06:31] LABS: CALCIUM 9.4 mg/dL (8.7-10.4); CARBON DIOXIDE 29 mEq/L (21-32); CHLORIDE 103 mEq/L (98-107); POTASSIUM 4.3 mEq/L (3.5-5.1); SODIUM 138 mEq/L (136-145)
[2024-06-08 06:36] LABS: CREATININE 0.8 mg/dL (0.6-1.3); GLUCOSE 94 mg/dL (70-105)
[2024-06-08 06:37] LABS: UREA NITROGEN BLOOD 12 mg/dL (9-23)
[2024-06-08 07:39] LABS: BASOPHILS % 0.8 % (0.0-2.0); EOSINOPHILS % 4.1 % (0.0-5.0); HEMATOCRIT. 37.7 % (42.0-52.0); HEMOGLOBIN. 12.3 g/dL (14.0-18.0); LYMPHOCYTES % 28.4 % (20.0-50.0); MEAN CORPUSCULAR HEMOGLOBIN 29.6 pg (28.0-32.0); MEAN CORPUSCULAR HGB CONC 32.6 g/dL (31.0-37.0); MEAN CORPUSCULAR VOLUME 90.7 fL (80.0-94.0); MEAN PLATELET VOLUME 9.4 fl (7.4-10.4); MONOCYTES % 11.7 % (2.0-8.0); PLATELET 187 x1000/uL (130-400); RED BLOOD CELL COUNT 4.16 mill/uL (4.7-6.1); RED CELL DISTRIBUTION WIDTH 14.7 % (11.6-14.6); WHITE BLOOD COUNT 5.4 x1000/uL (4.5-11.0)
[2024-06-08] MEDS: PANTOPRAZOLE SODIUM 40 MG/VIAL IV SCH (09:04)
[2024-06-09] VITALS (20 sets, daily range): BP systolic 99–153; BP diastolic 66–100; PULSE 68–101; RESP 15–22; TEMP 36.3–36.7; O2SAT 94–100
[2024-06-10] VITALS (19 sets, daily range): BP systolic 94–136; BP diastolic 54–95; PULSE 68–124; RESP 12–26; TEMP 36.3–36.6; O2SAT 92–100
[2024-06-10] MEDS ORDERED: P20 MT (14:30)
[2024-06-10] MEDS ORDERED: LEVO-65 MT (14:31)
== END 2024-06-10 20:31 | disposition home or self-care (01) | DRG 190 ==
LOC: ER 09:02 → 5EST 11:09 → EDBEDREQTM 11:11 → EDBEDREQ 11:11
PROVIDERS: ADMIT Internal Medicine; ATTEND Internal Medicine
PROC: 5A09357 Assistance with Respiratory Ventilation, Less than 24 Consecutive Hours, Continuous Positive Airway Pressure (ICD-10-PCS; principal; 2024-06-07)
PROC: 5A09357 Assistance with Respiratory Ventilation, Less than 24 Consecutive Hours, Continuous Positive Airway Pressure (ICD-10-PCS; 2024-06-08)
PROC: 5A09357 Assistance with Respiratory Ventilation, Less than 24 Consecutive Hours, Continuous Positive Airway Pressure (ICD-10-PCS; 2024-06-09)
PROC: 5A09357 Assistance with Respiratory Ventilation, Less than 24 Consecutive Hours, Continuous Positive Airway Pressure (ICD-10-PCS; 2024-06-10)
DX: J44.1 Chronic obstructive pulmonary disease with (acute) exacerbation (principal); J96.20 Acute and chronic respiratory failure, unspecified whether with hypoxia or hypercapnia; Z99.81 Dependence on supplemental oxygen
CPT/HCPCS: 36415; 36600; 71045; 71250; 80048; 80076; 81003; 82375; 82805; 83605; 84145; 84484; 85025; 93005; 94003; 94070; 94640; 94660; 94664; 99291; J0692; J1650; J2470; J2543; J2919; J3370; J7030; J7626

== ENCOUNTER 2024-11-29 10:34 | Emergency (ER) | payer BC, MEDICARE, OTHER ==
[~2024-11-29] VITALS: Ht 172.7 cm; Wt 54.0 kg
[~2024-11-29 10:34] MED LIST changes: +LEVO-65 MT
[2024-11-29 10:39] VITALS: PULSE 89; RESP 18; O2SAT 98
[2024-11-29 10:43] VITALS: BP 117/66; TEMP 36.8; O2SAT 96
[2024-11-29] MEDS ORDERED: IBUPROFEN 400MG TABLET PO ONE (11:00)
[2024-11-29] MEDS ORDERED: LIDOCAINE 5% PATCH TOP SCH (11:00)
[2024-11-29] MEDS ORDERED: IBUP-2028 MT (12:10)
[2024-11-29] MEDS ORDERED: LIDO-53 TP (12:10)
== END 2024-11-29 12:42 | disposition home or self-care (01) ==
LOC: ER 10:34
DX: M25.511 Pain in right shoulder (principal); M19.011 Primary osteoarthritis, right shoulder; J44.9 Chronic obstructive pulmonary disease, unspecified; Z79.51 Long term (current) use of inhaled steroids; Z79.899 Other long term (current) drug therapy
CPT/HCPCS: 73030; 99283